=== PATIENT | male | born 1980 | race Caucasian/White ===

== ENCOUNTER 2016-09-19 06:59 | Inpatient (IN) | payer OTHER ==
[~2016-09-19] VITALS: Ht 172.7 cm; Wt 91.7 kg
[2016-09-19] MEDS ORDERED: ZOLPIDEM 5 MG TAB PO PRN (07:00)
[2016-09-19] MEDS ORDERED: NACL 0.9% 3 ML SYG IV SCH (07:00)
[2016-09-19] MEDS ORDERED: ACETAMINOPHEN 325 MG TAB PO PRN (07:00)
[2016-09-19] MEDS ORDERED: morphine 2 MG INJ IV PRN (07:00)
[2016-09-19] MEDS ORDERED: HYDROCODONE/APAP (5/325) TAB PO PRN (07:00)
[2016-09-19] MEDS ORDERED: DOCUSATE SODIUM 100 MG CAP PO PRN (07:00)
--- NOTE | 2016-09-19 07:22 | EN ---
Date/Time of Note Date/Time of Note DATE: 09/19/16 TIME: 07:21 ER Progress Note The patient was received from [facility] for a 7 mm kidney stone that is obstructing with intractable pain. The patient is a direct admission but we do not have inpatient beds. The patient will be boarded in the emergency department. The patient was evaluated he is hemodynamically stable and describes only mild pain he was offered pain medication but refused at this time. Dr. Darby was at the bedside to evaluate and admit the patient. Patient is pending admission. RICARDO INGRAM MD Sep 19, 2016 07:21
[2016-09-19] MEDS: SOD CHLORIDE 0.45% 1,000 ML IV SCH ×3 (08:09→22:42)
[2016-09-19] MEDS: morphine 2 MG INJ IV PRN ×2 (08:11→15:26)
[2016-09-19] MEDS ORDERED: DIPHENHYDRAMINE 50 MG INJ IV ONE (08:30)
--- NOTE | 2016-09-19 10:00 | RADRPT ---
PROCEDURE: Abdominal study CLINICAL INDICATION: ureteral stone. Pain TECHNIQUE: Supine abdomen. COMPARISON: None FINDINGS: There is a 9 mm x 7 mm calcification to the right of L3 that could represent a calculus in the regio n of the the proximal right ureter. The bowel gas pattern is unremarkable with no evidence of obstruction. The remainder the study is unremarkable. IMPRESSION: 1. 9 mm x 7 mm calcification to the right of L3 that could represent a calculus in the region of th e proximal right ureter. CT renal calculus survey could be obtained for further evaluation. RPTAT: HH .Rocky Resendiz MD, Date Time Electronically viewed and signed by .Rocky Resendiz MD, on 09/19/2016 10:00 .G/
--- NOTE | 2016-09-19 10:22 | HP ---
DATE OF ADMISSION: 09/19/2016 TIME: 6:45 a.m. CHIEF COMPLAINT: Right flank pain. HISTORY OF PRESENT ILLNESS: The patient is a 36-year-old male with a history of nephrolithiasis wit h 3 surgeries in the past. He states 2 on the left side, there appears to 1 on the right side. The patient presents with severe pain now in the right flank. Presented to [facility] where he h ad a CT scan that showed a 7 mm stone in the right ureter. The patient's pain was unable to be cont rolled, and he was transferred for pain control and further evaluation. The patient has no other co mplaints at this time. PAST MEDICAL HISTORY: 1. Nephrolithiasis with 3 procedures for stone extraction. 2. Hypertension. PAST SURGICAL HISTORY: Denies any other surgeries except for procedures for nephrolithiasis. It ap pears that he has 2 on the left side and one on the right side. HOME MEDICATIONS: None reported. ALLERGIES: NO KNOWN DRUG ALLERGIES. FAMILY HISTORY: Sister with nephrolithiasis. SOCIAL HISTORY: Denies any tobacco abuse. Drinks socially. Denies any drug abuse. REVIEW OF SYSTEMS: A 12-point review of systems is negative except for that as in HPI. PHYSICAL EXAMINATION: VITAL SIGNS: Stable. GENERAL: No acute distress, alert and oriented. HEENT: Normocephalic, atraumatic. LUNGS: Clear to auscultation. CARDIOVASCULAR: Regular rate and rhythm. ABDOMEN: Nondistended, soft. Tenderness to palpation in the right lower quadrant. EXTREMITIES: No clubbing, cyanosis, or edema. DIAGNOSTICS: CT scan shows a 7 mm stone in the right side. ASSESSMENT AND PLAN: 1. Nephrolithiasis with persistent pain. The pain was unable to be controlled at the outside [facility] and hence was transferred. He has a 7 mm stone on the right side. Will treat with IV fluids. Will get a urology consultation. Will give Capay and morphine for pain control. 2. History of hypertension. Does not appear that the patient is on any medications. We will monit or. Currently stable. 3. Prophylaxis. Sequential compression devices. Dictated By: REBA LEON MD BS/NTS Conf#: [id number] DID#: [id number]
[2016-09-19 11:08] LABS: BASOPHIL # 0.1 10^3/ul (0.0-0.1); BASOPHILS % 0.4 % (0.0-2.0); EOSINOPHILS # 0.3 10^3/ul (0.0-0.5); EOSINOPHILS % 2.2 % (0.0-7.0); HEMATOCRIT 43.9 % (42.0-52.0); HEMOGLOBIN 15.1 g/dl (14.0-18.0); LYMPHOCYTES # 1.4 10^3/ul (0.8-2.9); LYMPHOCYTES % 11.1 % (15.0-51.0); MEAN CORPUSCULAR HEMOGLOBIN 27.4 pg (29.0-33.0); MEAN CORPUSCULAR HGB CONC 34.4 g/dl (32.0-37.0); MEAN CORPUSCULAR VOLUME 79.8 fl (82.0-101.0); MEAN PLATELET VOLUME 9.6 fl (7.4-10.4); MONOCYTE # 0.9 10^3/ul (0.3-0.9); MONOCYTES % 7.4 % (0.0-11.0); NEUTROPHILS % 78.9 % (39.0-77.0); PLATELET COUNT 200 10^3/UL (140-440); RED CELL DISTRIBUTION WIDTH 13.7 % (11.5-14.5); UNCORRECTED WBC 12.7 10^3/ul (4.8-10.8); WHITE BLOOD COUNT 12.7 10^3/ul (4.8-10.8)
[2016-09-19 11:10] LABS: CONDITION 1; LH ANALYZER COMMENTS 1
[2016-09-19 11:19] LABS: POTASSIUM 4.1 mmol/L (3.5-5.1)
[2016-09-19 11:22] LABS: CREATININE 1.88 mg/dl (0.61-1.24)
[2016-09-19 11:23] LABS: CALCIUM 8.5 mg/dl (8.4-10.2); MAGNESIUM 2.2 mg/dl (1.7-2.5)
[2016-09-19 11:30] VITALS: BP 158/98; PULSE 80; RESP 20
[2016-09-19] MEDS ORDERED: AMLO5TAB4 PO (11:54)
[2016-09-19 13:30] VITALS: Ht 172.7 cm; Wt 91.7 kg
[2016-09-19] MEDS ORDERED: hydrALAzine 20 MG INJ IV PRN (14:30)
[2016-09-19] MEDS: AMLODIPINE 5 MG TAB PO SCH (15:17)
--- NOTE | 2016-09-19 15:48 | RADRPT ---
PROCEDURE: XR Chest. CLINICAL INDICATION: Preoperative chest TECHNIQUE: Chest AP portable. COMPARISON: No comparison available. FINDINGS: The mediastinal structures are unremarkable. The heart is normal in size and configuration. The pu lmonary vascularity is normal. There are low lung volumes. No consolidation is identified. The pl eural spaces are unremarkable. The axial skeleton is unremarkable. IMPRESSION: Low lung volumes No active intrathoracic disease. RPTAT: HGDB .Rocky Perrin MD, MD Date Time Electronically viewed and signed by .Rocky Perrin MD, on 09/19/2016 15:47 .B/
[2016-09-19] MEDS: HYDROmorphONE 1 MG/ML SYG IV PRN ×2 (16:53→21:52)
[2016-09-19] MEDS ORDERED: HYDROCODONE/APAP (10/325) TAB PO PRN (17:00)
[2016-09-19 20:27] VITALS: BP 130/80; PULSE 74; RESP 18
--- NOTE | 2016-09-20 00:04 | CONS ---
DATE OF ADMISSION: 09/19/2016 DATE OF CONSULTATION: 09/19/2016 TYPE OF CONSULTATION: Cardiology REQUESTING PHYSICIAN: Dr. Darby. Dear Dr. Darby: Thank you for asking me to see this patient in urological consultation. HISTORY OF PRESENT ILLNESS: This is a 36-year-old male, who is known to have a history of kidney st ones, and has had stones that were stuck in the ureter; one time on the right side and another time on the left side, and now he has a stone that is in the right upper ureter. He presented initially to [facility] with right flank pain, underwent a CT scan, and that showed a 7 mm stone in th e upper right ureter. The patient initially was sent home with pain medication and Flomax, to [facility] [place] the following day because the pain was not controllable at home, and then when he was seen on the second day at [place], he was transferred to [facility] because of his insurance capitation . The patient presently is comfortable and he has no severe pain. MEDICATIONS: He that is on include: 1. Amlodipine for hypertension. 2. Morphine for the pain. 3. Zofran for the nausea. 4. Waldo for the pain 5. Colace. 6. Ambien p.r.n. ALLERGIES: THE PATIENT HAS NO KNOWN DRUG ALLERGIES. SOCIAL HISTORY: He does not smoke and does not drink any alcohol. PAST SURGICAL HISTORY: He has had at least 2 procedures; one here in September 2010, and another one over at [facility] 2 years ago. PHYSICAL EXAMINATION: GENERAL: Reveals a 36-year-old male. He weighs 91.68 kilograms. He is 68 inches tall. VITAL SIGNS: His temperature is 99.1, pulse is 71, respiration 18, blood pressure 161/81. HEAD AND NECK: Unremarkable. HEART: Regular. LUNGS: Clear. ABDOMEN: He does have tenderness in right flank area, otherwise, the abdomen is soft. GENITALIA: External genitalia are normal. EXTREMITIES: Reveal no edema and no varicose veins. LABORATORY DATA: The patient had labs that were done at [facility], and his CBC shows a white count of 13, hemoglobin is 16.7, hematocrit 46.7. The urinalysis was positive for occult blood. T he BUN was 29, creatinine 1.83. IMPRESSION: Right upper ureteral stone, 7 mm in size. PLAN: Keep him on pain medication, strain the urine, do a KUB today, and another KUB tomorrow, and see if the stone comes down. If it does not, we will have to go up and try to break it with the hol mium laser. If we are not able to reach it, we put the JJ stent, and we could come back later on an d remove the stone. Dictated By: IKE QUARLES/SKYLAR Conf#: [id number] DID#: [id number]
[2016-09-20] MEDS: HYDROmorphONE 1 MG/ML SYG IV PRN ×3 (02:45→21:21)
[2016-09-20] MEDS: SOD CHLORIDE 0.45% 1,000 ML IV SCH ×3 (05:47→21:23)
[2016-09-20 05:51] LABS: INR 1.02; PROTIME 13.4 Sec (12.2-14.2)
[2016-09-20 07:39] VITALS: BP 137/88; RESP 17
[2016-09-20] MEDS: AMLODIPINE 5 MG TAB PO SCH (08:18)
[2016-09-20] MEDS: ONDANSETRON 4 MG INJ IV PRN (09:09)
--- NOTE | 2016-09-20 10:54 | RADRPT ---
PROCEDURE: XR Abdomen. CLINICAL INDICATION: Flank pain, right ureteral stone. TECHNIQUE: AP supine abdomen x-ray. COMPARISON: September 19, 2016 FINDINGS: Large amount of formed stool is identified in the right colon. No dilated loops of small bowel are observed. No organomegaly is identified. 10 mm calcification overlying the right transverse process of the L3 vertebral body is unchanged. Mild degenerative changes are seen in the spine. IMPRESSION: Large amount of formed stool in the right colon suggesting constipation. Stable 10 mm calcification overlying the right transverse process of the L3 vertebral body. Finding is compatible with a right ureteral stone. Location is unchanged from prior exam. If further characterization is needed CT renal stone survey is recommended. RPTAT: AA .Rai Scott MD, Date Time Electronically viewed and signed by .Rai Scott MD, MD on 09/20/2016 10:54 .P/
--- NOTE | 2016-09-20 11:25 | PN ---
Date/Time of Note Date/Time of Note DATE: 09/20/16 TIME: 11:23 Assessment/Plan VTE Prophylaxis VTE Prophylaxis Intervention: SCD's Lines/Catheters IV Catheter Type (from Nrsg): Peripheral IV Urinary Cath still in place: No Assessment/Plan Assessment/Plan 1. Nephrolithiasis with persistent pain. repeat KUB shows stone present on R ureter - will possibly need holium laser by urology - consult appreciated - pain management 2. Essential hypertension. Patient will be started on low dose HCTZ- 12.5 mg po daily - 2/2 to nephrolithiasis 3. Prophylaxis. Sequential compression devices. dispo - f/u recs, possible laser lithotripsy tomorrow, as per clinical course. this progress note took greater than 40 minutes to complete Subjective 24 Hr Interval Summary Free Text/Dictation Patient is still having pain right flank. Otherwise no fevers/chills. He does believe that he passed the stone. Spoke to him about the care plan. 15 minutes spent. Exam/Review of Systems Vital Signs Vitals Vital Signs Date Time Temp Pulse Resp B/P Pulse Ox O2 Delivery O2 Flow Rate FiO2 09/20/16 07:39 98.9 66 17 137/88 96 09/19/16 20:27 Room Air Intake and Output 09/19/16 09/19/16 09/20/16 15:00 23:00 07:00 Intake Total 1050 ml 2300 ml Output Total 1300 ml Balance 1050 ml 1000 ml Exam Gen Karlene: mild to moderate distress 2/2 to right flank pain, AAOx4 HEENT: NC/AT, PERRLA, EOMI, no pharyngeal erythema, no tonsillar exudates, no lymphadenopathy, no JVD, no carotid bruits NECK: supple, no thyromegaly THORAX: symmetrical, no obvious deformities CV: S1S2, RRR, no M/G/R Lungs: CTAB no W/C/R/R Abd: soft, NT/ND, +BS, no rebound, no guarding, neg HSM, right CVA tenderness EXT: no edema, no ecchymosis, no clubbing, FROM Neuro: CN II-XII grossly intact, no focal deficits Psych: good mentation, alert and oriented, good mood and affect Skin: C/D/I Results Result Diagram: 09/19/16 1052 09/19/16 1052 Results 24 hrs Laboratory Tests Test 1/8/17 04:24 Activated Partial Thromboplast Time 34.0 INR International Normalized Ratio 1.02 Prothrombin Time 13.4 Prothrombin Time Ratio 1.0 Medications Medications Current Medications Sodium Chloride (1/2 NS) 1,000 ml @ 125 mls/hr Q8H IV Last administered on 09/20 05:47; Admin Dose 125 MLS/HR; Start 09/19/16 at 07:00 Ondansetron HCl (Zofran Inj) 4 mg Q6H PRN IV NAUSEA AND/OR VOMITING Last administered on 09/20/16 09:09; Admin Dose 4 MG; Start 09/19/16 at 07:00 Acetaminophen (Tylenol Tab) 650 mg Q6H PRN PO PAIN LEVEL 1-3 OR FEVER; Start at 07:00 Acetaminophen/ Hydrocodone Bitart (Wray (5/325)) 1 tab Q6H PRN PO MODERATE PAIN LEVEL 4-6; Start 09/19/16 at 07:00 Docusate Sodium (Colace) 100 mg Q12H PRN PO CONSTIPATION; Start 09/19/16 at 07: 00 Zolpidem Tartrate (Ambien) 5 mg QHS PRN PO SLEEP; Start 09/19/16 at 07:00 Morphine Sulfate (morphine) 2 mg Q2H PRN IV SEVERE PAIN LEVEL 7-10 Last administered on 09/19/16 15:26; Admin Dose 2 MG; Start 09/19/16 at 08:00 Amlodipine Besylate (Norvasc) 5 mg DAILY PO Last administered on 09/20/16 08:18 ; Admin Dose 5 MG; Start 09/19/16 at 14:30 Hydralazine HCl (Apresoline) 10 mg Q4H PRN IV SBP > 160; Start 09/19/16 at 14:30 Acetaminophen/ Hydrocodone Bitart (Wray (10/325)) 1 tab Q6H PRN PO PAIN LEVEL 4-7; Start 09/19/16 at 17:00 Hydromorphone HCl (Dilaudid) 1 mg Q4H PRN IV PAIN Last administered on 02:45; Admin Dose 1 MG; Start 09/19/16 at 17:00 Procedures Procedures ABD xray IMPRESSION: Large amount of formed stool in the right colon suggesting constipation. Stable 10 mm calcification overlying the right transverse process of the L3 vertebral body. Finding is compatible with a right ureteral stone. Location is unchanged from prior exam. If further characterization is needed CT renal stone survey is recommended. DALJIT CHAVIS MD Sep 20, 2016 11:25
[2016-09-20] MEDS: HYDROCHLOROTHIAZIDE 12.5 MG CAP NGT SCH (12:15)
[2016-09-20 19:20] VITALS: BP 140/90; RESP 18
--- NOTE | 2016-09-20 20:50 | PN ---
DATE: 09/20/2016 SUBJECTIVE: Right flank pain. Right upper ureteral stone. The patient stated that his pain has be en around 5/10 today. OBJECTIVE: His temperature is 98.6, pulse is 69, respiration 18, blood pressure 140/90. There is r ight flank tenderness. The abdomen otherwise is soft. LABORATORY DATA: His CBC shows a white count of 12.7, hemoglobin 15.1, hematocrit 43.9. BUN is 26, creatinine 1.88. Sodium 139, potassium 4.1, chloride 104, CO2 of 26. PT is 13.4, INR 1.02, PTT 34 .0. A KUB was done today and that showed a 10 mm stone over the right transverse process of L3. IMPRESSION: Right upper ureteral stone. Stone is probably at the ureteropelvic junction area with hydronephrosis. PLAN: Do a cystoscopy, try to manipulate the stone back into the kidney, and then do extracorporeal shock wave lithotripsy. If that works that would be fine, otherwise, then we will have to put a JJ stent. The procedure, the benefits, the risks, the possible complications, and the possible need f or multiple procedures were explained to the patient in detail and his cousin was present. He also helped translating for him in case he did not understand. Dictated By: IKE COLEMAN MD BB/SKYLAR Conf#: [id number] DID#: [id number] CC: REBA LEON MD;*End*
[2016-09-20 21:00] VITALS: BP 126/67; PULSE 67; RESP 20
[2016-09-21] VITALS (17 sets, daily range): BP systolic 132–159; BP diastolic 80–96; PULSE 68–84; RESP 16–22
[2016-09-21] MEDS: HYDROmorphONE 1 MG/ML SYG IV PRN ×2 (03:09→13:24)
[2016-09-21] MEDS: SOD CHLORIDE 0.45% 1,000 ML IV SCH ×3 (03:09→14:45)
[2016-09-21 05:22] LABS: POTASSIUM 4.2 mmol/L (3.5-5.1)
[2016-09-21 05:25] LABS: CREATININE 1.97 mg/dl (0.61-1.24); EOSINOPHILS # 0.3 10^3/ul (0.0-0.5); EOSINOPHILS % 3.1 % (0.0-7.0); HEMATOCRIT 44.6 % (42.0-52.0); HEMOGLOBIN 15.2 g/dl (14.0-18.0); LYMPHOCYTES # 1.3 10^3/ul (0.8-2.9); LYMPHOCYTES % 12.5 % (15.0-51.0); MEAN CORPUSCULAR HEMOGLOBIN 27.3 pg (29.0-33.0); MEAN CORPUSCULAR VOLUME 80.2 fl (82.0-101.0); MEAN PLATELET VOLUME 9.9 fl (7.4-10.4); MONOCYTE # 0.9 10^3/ul (0.3-0.9); MONOCYTES % 8.8 % (0.0-11.0); NEUTROPHILS % 75.6 % (39.0-77.0); PLATELET COUNT 210 10^3/UL (140-440); RED BLOOD COUNT 5.56 10^6/ul (4.70-6.10); RED CELL DISTRIBUTION WIDTH 13.3 % (11.5-14.5); UNCORRECTED WBC 10.5 10^3/ul (4.8-10.8); WHITE BLOOD COUNT 10.5 10^3/ul (4.8-10.8)
[2016-09-21 05:26] LABS: CALCIUM 8.8 mg/dl (8.4-10.2)
[2016-09-21 05:42] LABS: CONDITION 1; LH ANALYZER COMMENTS 1
[2016-09-21] MEDS: AMLODIPINE 5 MG TAB PO SCH (08:27)
[2016-09-21] MEDS: HYDROCHLOROTHIAZIDE 12.5 MG CAP NGT SCH (08:27)
[2016-09-21] MEDS: ONDANSETRON 4 MG INJ IV PRN ×2 (08:29→20:32)
--- NOTE | 2016-09-21 10:24 | PN ---
DATE: 09/21/2016 TIME: 9:05 a.m. SUBJECTIVE DATA: Complains of right flank pain. OBJECTIVE DATA: VITAL SIGNS: Temperature 98.1, pulse rate 61, respiratory rate 18, blood pressure 143/89, oxygen saturation 94% on room air. GENERAL: This is a slightly overweight male patient lying in bed in no apparent distress. HEENT: Head normocephalic and atraumatic. Eyes: Anicteric sclerae. Conjunctivae clear. ENT: Nasal septum is midline. Oral mucosa is moist. NECK: Supple. No JVD noticed. RESPIRATORY: Bilaterally clear to auscultation. No adventitious breath sounds. No use of accessory muscles of respiration. CARDIAC: Regular rate and rhythm. No murmurs heard. ABDOMEN: Soft, nontender and nondistended. Bowel sounds positive in all 4 quadrants. GENITOURINARY: Right CVA tenderness. EXTREMITIES: No cyanosis, no edema, no clubbing. Peripheral pulses palpable. NEUROLOGIC: The patient is awake, alert and oriented. Cranial nerves are grossly intact. PSYCH: Normal mood and affect. SKIN: Clean, dry and intact. LABORATORY AND DIAGNOSTIC DATA: WBC 10.5, hemoglobin 15.2, hematocrit 44.6, platelet count 210. Sodium 140, potassium 4.9, chloride 101, carbon dioxide 24 , anion gap 19, BUN 27, creatinine 1.97, glucose 97, calcium 8.8. ASSESSMENT AND PLAN: 1. Nephrolithiasis. KUB showing right ureteral stone. The patient is scheduled for laser lithotripsy by urology. 2. Essential hypertension. Continue antihypertensives. 3. Nonoliguric acute kidney injury. Most probably post renal in origin because of obstructing right ureteral stone. Continue to monitor the BUN and creatinine closely. 4. Fluid, electrolytes and nutrition. Regular diet as tolerated. 5. Deep venous thrombosis prophylaxis. Bilateral sequential compression devices. Ambulation. 6. Gastrointestinal prophylaxis not indicated. PLAN: Continue pain control. Continue IV hydration. Await urology procedure. Case discussed with Dr. Rees. GUSTAVO REES MD, AM/SKYLAR Conf#: [id number] DID#: [id number] MTDD
[2016-09-21] MEDS: morphine 2 MG INJ IV PRN (14:42)
[2016-09-21] MEDS ORDERED: HYDROmorphONE 1 MG/ML SYG IV STA (16:06)
[2016-09-21] MEDS ORDERED: CEFAZOLIN 1 GM INJ ONE ×2 (17:44→17:55)
[2016-09-21] MEDS ORDERED: ROCURONIUM 50 MG INJ ONE (17:44)
[2016-09-21] MEDS ORDERED: METOCLOPRAMIDE 10 MG INJ ONE (17:44)
[2016-09-21] MEDS ORDERED: MIDAZOLAM 1 MG/ML 2 ML INJ ONE (17:44)
[2016-09-21] MEDS ORDERED: PROPOFOL 20 ML ONE (17:44)
[2016-09-21] MEDS ORDERED: LIDOCAINE 2% 20 ML UROJET SYRINGE ONE (17:50)
--- NOTE | 2016-09-21 17:52 | HPN ---
Date/Time of Note Date/Time of Note DATE: 09/21/16 TIME: 17:51 Interval H&P Admission Note Pt. seen H&P reviewed: No system changes IKE COLEMAN MD Sep 21, 2016 17:52
[2016-09-21] MEDS ORDERED: FENTAnyl 50 MCG/ML VIAL ONE (18:15)
[2016-09-21] MEDS ORDERED: MEPERIDINE 25 MG INJ IV PRN (18:30)
[2016-09-21] MEDS ORDERED: LABETALOL HCL 20MG INJ IV PRN (18:30)
[2016-09-21] MEDS ORDERED: DIPHENHYDRAMINE 50 MG INJ IV PRN (18:30)
[2016-09-21] MEDS ORDERED: hydrALAzine 20 MG INJ IV PRN (18:30)
[2016-09-21] MEDS ORDERED: HYDROmorphONE (0.2 MG/ML) 10ML SYG IV PRN ×2 (18:30)
[2016-09-21] MEDS ORDERED: METOCLOPRAMIDE 10 MG INJ IV PRN (18:30)
[2016-09-21] MEDS ORDERED: ONDANSETRON 4 MG INJ IV PRN (18:30)
[2016-09-21] MEDS ORDERED: FUROSEMIDE 20 MG INJ ONE (19:07)
[2016-09-21] MEDS: HYDROmorphONE (0.2 MG/ML) 10ML SYG IV PRN ×3 (19:50→20:00)
--- NOTE | 2016-09-21 21:59 | OPR ---
DATE OF OPERATION: 09/21/2016 PREOPERATIVE DIAGNOSIS: Right upper ureteral stone. POSTOPERATIVE DIAGNOSIS: Right upper ureteral stone. OPERATION PERFORMED: Cystoscopy, manipulation of the right ureteral stone and pushing it back into the kidney, and then doing right extracorporeal shock wave lithotripsy. TECHNIQUE: The patient was brought to the operating room. The patient was given general anesthesia and then placed on the lithotripsy machine table. A timeout was done. He was identified by his na me, date, the procedure, and the side of the procedure and the site of the procedure. He was given 2 grams of Ancef IV at the start of the procedure. Then, he was positioned in the lithotomy p osition. The genital area was prepped and draped in the usual sterile manner. A #21-Yakut cystosc ope sheath was introduced into the bladder. Urine was collected from the bladder for culture and se nsitivity. Then, the right ureteral orifice was identified and then cannulated with a 6-Yakut open -ended ureteral catheter and a Glidewire passed through that. The Glidewire was advanced and then t he open-ended was advanced all the way up to the level of the stone. At that moment, I removed the Glidewire and then I used a mixture of 20 mL of 2% lidocaine gel plus about 30 mL of normal saline m ixed together, and then I injected, and under fluoroscopy, did dislodge the stone from the upper ure ter. It was just below the ureteropelvic junction and did dislodge the stone and the stone moved up to the kidney area. I then I advanced open ended into the kidney and aspirated urine from the [facility] for culture and sensitivity. At that moment I then emptied the bladder, I removed the cystoscope leaving the open-ended ureteral catheter in place to help localize the stone and also if we needed to inject any contrast, we could use that. Then, a 16-Yakut Pagan catheter was inserted into the b ladder. The balloon inflated with 10 mL of sterile water. Catheter was connected to a drainage bag . Then the ureteral catheter was taped to the Pagan catheter with a piece of Tegaderm and also 10 m L syringe was placed at the tip of it, so it does not drip on the table. Then, the patient was repo sitioned in the supine position. The stone was localized on both screens of the lithotripsy machine , and then the lithotripsy was started. Gradually the power did go up to 7 kilovolts and the stone appeared to be breaking well. At the end of the procedure, the stone appeared to be broken very wel l. In between, we regularly checked the position of the stone and, at one time, removed the shock h ead out and then took a picture and it seems that we are in good position. Then I aspirated the uri ne from the kidney. It was bloody, indicating that the stone was breaking as well and, on the fluor oscopy, it showed that the stone did break very well. Then, toward the end of the procedure, the pa tient was given 10 mg of Lasix. We gave a total of 2400 shock waves. At the end of the procedure, the ureteral catheter was removed. The patient was transferred to recovery room in stable and satis factory condition. Dictated By: IKE COLEMAN MD BB/SKYLAR Conf#: [id number] DID#: [id number] CC: REBA LEON MD;*EndCC*
--- NOTE | 2016-09-21 22:37 | RADRPT ---
PROCEDURE: Intraoperative imaging of the abdomen and pelvis with fluoroscopy. CLINICAL INDICATION: Abdominal pain. Intraoperative. TECHNIQUE: 38 images of the abdomen and pelvis were obtained in the operating room with an image i ntensifier. No radiologist was in attendance. 87.3 seconds of fluoroscopy time was used. COMPARISON: Abdomen radiograph dated 09/20/2016. FINDINGS: Images demonstrate targeting for ESWL. IMPRESSION: 1. Satisfactory intraoperative imaging of the abdomen and pelvis. RPTAT: QQ .Tom Raymond MD, Date Time Electronically viewed and signed by .Tom Raymond MD, on 09/21/2016 22:37 .R/
[2016-09-22 01:14] VITALS: BP 133/133; RESP 18
[2016-09-22] MEDS: SOD CHLORIDE 0.45% 1,000 ML IV SCH ×3 (02:58→10:38)
[2016-09-22 05:49] LABS: BASOPHILS % 0.2 % (0.0-2.0); EOSINOPHILS # 0.1 10^3/ul (0.0-0.5); HEMATOCRIT 44.3 % (42.0-52.0); HEMOGLOBIN 15.3 g/dl (14.0-18.0); LYMPHOCYTES # 1.2 10^3/ul (0.8-2.9); LYMPHOCYTES % 10.4 % (15.0-51.0); MEAN CORPUSCULAR HEMOGLOBIN 27.7 pg (29.0-33.0); MEAN CORPUSCULAR HGB CONC 34.6 g/dl (32.0-37.0); MEAN PLATELET VOLUME 9.9 fl (7.4-10.4); MONOCYTE # 0.8 10^3/ul (0.3-0.9); MONOCYTES % 6.9 % (0.0-11.0); NEUTROPHIL # 9.7 10^3/ul (1.6-7.5); NEUTROPHILS % 81.5 % (39.0-77.0); PLATELET COUNT 218 10^3/UL (140-440); RED BLOOD COUNT 5.53 10^6/ul (4.70-6.10); RED CELL DISTRIBUTION WIDTH 13.5 % (11.5-14.5); UNCORRECTED WBC 11.9 10^3/ul (4.8-10.8); WHITE BLOOD COUNT 11.9 10^3/ul (4.8-10.8)
[2016-09-22 05:57] LABS: POTASSIUM 3.9 mmol/L (3.5-5.1)
[2016-09-22 05:59] LABS: CREATININE 1.79 mg/dl (0.61-1.24)
[2016-09-22 06:00] LABS: CALCIUM 9.1 mg/dl (8.4-10.2)
[2016-09-22 06:01] LABS: PHOSPHORUS 4.2 mg/dl (2.5-4.9)
[2016-09-22 06:23] LABS: CONDITION 1; LH ANALYZER COMMENTS 1
[2016-09-22 06:42] LABS: CHOL/HDL RATIO 5.7 RATIO
[2016-09-22 07:00] LABS: THYROID STIMULATING HORMONE 0.459 MIU/L (0.465-4.680)
[2016-09-22] MEDS: HYDROmorphONE 1 MG/ML SYG IV PRN (07:28)
[2016-09-22] MEDS: ONDANSETRON 4 MG INJ IV PRN (08:26)
[2016-09-22 08:30] VITALS: BP 130/64; PULSE 76
[2016-09-22] MEDS: HYDROCHLOROTHIAZIDE 12.5 MG CAP NGT SCH (08:40)
[2016-09-22] MEDS: AMLODIPINE 5 MG TAB PO SCH (08:40)
--- NOTE | 2016-09-22 10:53 | RADRPT ---
PROCEDURE: XR Abdomen. CLINICAL INDICATION: Abdomen pain. TECHNIQUE: AP supine abdomen x-ray. COMPARISON: 09/20/2016. FINDINGS: The bowel gas pattern is normal. There is no evidence of obstruction. Previously noted calculus overlying the right transverse process of L3 is no longer visualized. The re are no abnormal calcifications overlying the urinary tracts. The osseus structures are unremarkable. IMPRESSION: 1. Unremarkable abdomen radiograph. 2. Previously noted calculus overlying the right transverse process of L3 is no longer visualized. RPTAT: QQ .Tom Raymond MD, MD Date Time Electronically viewed and signed by .Tom Raymond MD, MD on 09/22/2016 10:52 .R/
--- NOTE | 2016-09-22 14:14 | PDOCDIS ---
Discharge Instructions DIAGNOSIS Discharge Diagnosis: Nephrolithiasis CONDITION Patient Condition: Stable HOME CARE INSTRUCTIONS: Diet Instructions: Regular OTHER ORDERS: Other Orders: 1. Regular diet as tolerated. 2. Resume activities as tolerated. 3. Continue to strain urine. 4. Follow-up with Dr. Solis. 5. Take pain medications as needed. GUSTAVO YANCEY NP Sep 22, 2016 14:13
[2016-09-22] MEDS ORDERED: HYDR-902 PO (14:15)
--- NOTE | 2016-09-22 15:47 | DS ---
DATE OF ADMISSION: 09/19/2016 DATE OF DISCHARGE: 09/22/2016 FINAL DIAGNOSES: 1. Nephrolithiasis with right ureteral stone. Status post cystoscopy with manipulation of the right ureteral stone and extracorporeal shockwave lithotripsy. 2. Essential hypertension. 3. Nonoliguric acute kidney injury secondary to obstructing right ureteral stone, improving. CONSULTATIONS: Dr. Ish Solis, urology. HOSPITAL COURSE: This is a 36-year-old male with past medical history of nephrolithiasis and prior lithotripsies who came to the emergency room with chief complaint of right flank pain. The patient initially presented to [facility] where he had a CT scan that showed a 7 mm stone in the right ureter. The pain was unable to be controlled, hence the patient was hospitalized. The patient was transferred to [facility] because of insurance reasons. The patient was admitted to inpatient medical/surgical floor. He was started on IV hydration. A urology consult was called. The patient was seen and evaluated by Urology. The patient underwent a cystoscopy with manipulation of the right ureteral stone and pushing it back into the kidney, followed by a right extracorporeal shockwave lithotripsy on 09/21/2016. Post-procedure, the patient's pain was well controlled with analgesics. The patient was continued on IV fluids. The patient's urine culture x2 was negative. The patient was not maintained on any antibiotics. The patient has a history of essential hypertension. He was maintained on antihypertensives for the same. The patient was also started on low dose hydrochlorothiazide because of underlying nephrolithiasis. The patient was also noted to have known oliguric acute kidney injury with a creatinine as high as 1.97. It was concluded that this could be post renal in origin because of the blocking right ureteral stone. The patient had no symptoms of any uremia. The patient remained nonoliguric. The patient's BUN and creatinine was improving with IV hydration and treatment of nephrolithiasis. The patient had a stable hospital course. The patient was cleared by urology to be discharged home. The patient's pain was well controlled. The patient denied any complaints at the time of discharge. DISCHARGE DISPOSITION/PLAN: The patient will be discharged home today. The patient was instructed to take a regular diet as tolerated. He was instructed to resume activities as tolerated. He was instructed to continue to strain the urine for kidney stones. He was instructed to follow up with Dr. Solis. He was instructed to take pain medications as needed. The patient was instructed to go to the nearest emergency room if he has significant difficulty in urination, alessandra hematuria, or any other unusual signs or symptoms. The patient verbalized understanding of his discharge instructions. CONDITION AT DISCHARGE: Stable. DISCHARGE MEDICATIONS: 1. [place] 10/325 one tablet p.o. q. p.r.n. pain, (#20 tablets). 2. Amlodipine 5 mg p.o. b.i.d. PERTINENT LABORATORY AND DIAGNOSTIC TESTS AND PROCEDURES: 1. 09/21/2016, Cystoscopy with manipulation of the right ureteral stone and pushing it back into the kidney and then doing a right extracorporeal shockwave lithotripsy. 2. Urine culture x2, negative. 3. Latest CBC: WBC 11.9, hemoglobin 15.3, hematocrit 44.3, platelet count 218. 4. Latest BMP: Sodium 140, potassium 3.9, chloride 100, carbon dioxide 25, anion gap 20, BUN 27, creatinine 1.79, glucose 89, calcium 9.1, phosphorus 4.0, magnesium 2.0. 5. Fasting lipid panel: Triglycerides 144. Total cholesterol 200, LDL 136, HDL 35. 6. Hemoglobin A1c 5.1. 7. Latest abdominal x-ray on 09/22/2016. Unremarkable abdominal radiograph. At this time, we would like to thank Dr. Slois for seeing the patient, doing the necessary procedures, and providing clinical recommendations. The case and management of this patient was fully discussed with Dr. Rees. Approximately 35 minutes was spent on coordinating the discharge on this patient. GUSTAVO REES MD, AM/SKYLAR Conf#: [id number] DID#: [id number] MTDD
--- NOTE | 2016-09-22 16:25 | PN ---
DATE: 09/22/2016 SUBJECTIVE: Status post right extracorporeal shock wave lithotripsy to right renal stone. The harjinder ent is comfortable and has minimal if any pain. OBJECTIVE: VITAL SIGNS: He is afebrile. Temperature 98.1, pulse 87, respiration 18, blood pressure 136/87. ABDOMEN: Soft. The KUB shows that the stone that was there is no longer visualized. His urine cul ture no growth. LABORATORY DATA: CBC shows a white count of 11.9, hemoglobin 15.3, hematocrit 44.3. The BUN is 27, creatinine 1.79. IMPRESSION: The patient is status post extracorporeal shockwave lithotripsy and he is stable and th erefore he could go home today and follow up with his primary care physician. If there is a need fo r him to be sent to me, his primary care physician will give him a referral authorization. Dictated By: IKE QUARLES/SKYLAR Conf#: [id number] DID#: [id number]
== END 2016-09-22 16:20 | disposition home or self-care (01) | DRG 670 ==
LOC: E/R 06:59 → EDSTATUS 07:18 → E/R 07:18 → MS1 08:05
PROVIDERS: ADMIT Internal Medicine; ATTEND Internal Medicine
PROC: 0TC68ZZ Extirpation of Matter from Right Ureter, Via Natural or Artificial Opening Endoscopic (ICD-10-PCS; principal; 2016-09-21 17:30)
DX: N20.2 Calculus of kidney with calculus of ureter (principal); I10 Essential (primary) hypertension
CPT/HCPCS: 71010; 74000; 74430; 80048; 80061; 83036; 83735; 84100; 84439; 84443; 85025; 85610; 85730; 87086; J1940; J0690; J1170; J1200; J2250; J2270; J2405; J2765; J3010